=== PATIENT | male | born 1990 | race American Indian/Alaskan Native ===

== ENCOUNTER 2017-07-15 03:29 | Emergency (ER) | payer OTHER ==
[2017-07-15 03:35] VITALS: BP 141/98
[2017-07-15] MEDS ORDERED: PEPCID PO ONE (04:20)
[2017-07-15] MEDS ORDERED: BENADRYL PO ONE (04:20)
--- NOTE | 2017-07-15 06:37 | Emergency Department Report ---
HPI - General Chief Complaint: Allergic Reaction Time Seen by Provider: 07/15/17 04:43 - HPI HPI: This is a 27 y.o. male, presenting with an allergic reaction to plastic from work. 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 The bag hit the back of his hand and his hand began to swell with a rash. He called his girlfriend and she brought him to the ER. Denies difficulty swallowing, SOB, or tongue swelling. ED Past Medical Hx - Past Medical History Previous Medical History?: Yes Additional medical history: Eczema - Surgical History Past Surgical History?: No - Social History Smoking Status: Current Some Day Smoker Substance Use Type: None - Medications Home Medications: Home Medications Medication Instructions Recorded Confirmed Last Taken Type No Known Home Medications [No 07/15/17 07/15/17 Unknown History Reported Home Medications] ED Review of Systems ROS: Stated complaint: ALLERGIC REACTION Other details as noted in HPI Constitutional: no symptoms reported, see HPI. denies: chills, diaphoresis, fever, malaise, weakness Eyes: denies: eye discharge ENT: as per HPI. denies: ear pain, throat pain, dental pain, hearing loss, epistaxis, congestion Respiratory: no symptoms reported, see HPI. denies: cough, orthopnea, shortness of breath, SOB with exertion, SOB at rest, stridor, wheezing Cardiovascular: as per HPI. denies: chest pain, palpitations, dyspnea on exertion, orthopnea, edema, syncope, paroxysmal nocturnal dyspnea Skin: as per HPI, rash. denies: lesions, change in color, change in hair/nails , pruritus Neurological: as per HPI. denies: headache, weakness, numbness, paresthesias, confusion, abnormal gait, vertigo Psychiatric: as per HPI. denies: anxiety, depression, auditory hallucinations, visual hallucinations, homicidal thoughts, suicidal thoughts Physical Exam - Physical Exam Vital Signs: Vital Signs 07/15/17 07/15/17 03:31 04:13 Temperature 98.0 F 98 F Pulse Rate 105 H 98 H Respiratory 18 16 Rate Blood Pressure 141/98 141/98 O2 Sat by Pulse 98 98 Oximetry ED Course Vital Signs 07/15/17 07/15/17 03:31 04:13 Temperature 98.0 F 98 F Pulse Rate 105 H 98 H Respiratory 18 16 Rate Blood Pressure 141/98 141/98 O2 Sat by Pulse 98 98 Oximetry Critical care attestation.: If time is entered above; I have spent that time in minutes in the direct care of this critically ill patient, excluding procedure time. ED Disposition Clinical Impression: Allergic contact dermatitis Qualifiers: Contact dermatitis trigger: other trigger Qualified Code(s): L23.89 - Allergic contact dermatitis due to other agents Disposition: DC- TO HOME OR SELFCARE Is pt being admited?: No Does the pt Need Aspirin: No Condition: Stable Additional Instructions: Follow-up with PCP. Continue to use benadryl for symptom relief. Return to ER if shortness of breath, difficulty swallowing, or tongue enlarge Referrals: PRIMARY CARE, [Primary Care Provider] - 3-5 Days Forms: Work/School Release Form(ED) Time of Disposition: 06:39 Print Language: LAO
== END 2017-07-15 06:43 | disposition home or self-care (01) ==
LOC: ED 03:29
DX: L23.9 Allergic contact dermatitis, unspecified cause (principal); F17.200 Nicotine dependence, unspecified, uncomplicated
CPT/HCPCS: 99282